=== PATIENT | female | born 1965 | race Two or more races ===

== ENCOUNTER 2024-12-21 15:40 | Emergency (ER) | payer MEDICAID, OTHER, SELFPAY ==
[2024-12-21 15:49] VITALS: BP 184/82; PULSE 73; RESP 19; TEMP 36.6; O2SAT 98; BMI 39.7
--- NOTE | 2024-12-21 15:51 | ED.GENADULT ---
HPI - General Adult General Chief complaint: General Medical Stated complaint: med refill Time Seen by Provider: 12/21/24 15:56 Source: patient Mode of arrival: ambulatory Limitations: language barrier (Chilean-speaking adjunct professor of voice utilized) History of Present Illness ED Provider: haider guardado np HPI narrative: Patient is a 59-year-old female who presents emergency department with family for evaluation. She is in the process of changing insurances, her old primary care provider will not see her with this new insurance, and does not have an appointment with a new primary care provider until May 2025. She states that she ran out of her blood pressure medication this morning; losartan 50 mg daily, hydrochlorothiazide 25 mg daily, simvastatin 40 mg daily, metformin ER 500 mg twice daily that she ran out of 1 week ago. She offers no physical complaints at this time. Related Data Previous Rx's ?Medication ?Instructions ?Recorded hydrochlorothiazide 25 mg tablet 25 mg PO DAILY #90 tabs 12/21/24 losartan 50 mg tablet 50 mg PO DAILY #90 tabs 12/21/24 metformin 500 mg tablet,extended 500 mg PO BID #180 tabs 12/21/24 release 24 hr (Glucophage XR) simvastatin 40 mg tablet 40 mg PO DAILY #90 tabs 12/21/24 Allergies Allergy/AdvReac Type Severity Reaction Status Date / Time No Known Allergies Allergy Verified 12/21/24 15:55 Review of Systems Review of Systems: Yes all other systems are reviewed and are negative [facility] Past Medical History Attestation statement: The following information was validated with the patient. Source: old records reviewed Physical Exam ED Exam Exam: Appearance: Alert.?Oriented to person, place and time. No acute distress.?Normal affect. Neck: Normal inspection.? Neck supple.?? CVS: Heart sounds normal. Normal heart rate and rhythm.? Pulses normal.?? Respiratory: No respiratory distress.? Lung sounds clear to auscultation bilaterally?? Skin: Skin warm and dry.? Normal skin color.? Extremities: No lower extremity edema.? No calf ttp? Neuro: Moves all extremities spontaneously. Sensation intact bilaterally. No focal neuro deficits. Ambulates with normal steady gait. Medical Decision Making Medical Decision Making MDM Narrative: Patient is a 51-year-old female past medical history of hypertension hyperlipidemia, diabetes who presents emergency department requesting assistance with medication refill as per HPI. Offers no physical complaints and her physical examination is benign. I have agreed to send prescription refill to her pharmacy, patient and daughter are enquiring about potential [id number] cost, did make them aware that I am not able to provide this exact information but did discuss utilization of GoodRx as well. All questions answered. Stable for discharge Differential Diagnosis Differential Diagnoses: The differential diagnosis associated with the presentation includes (Hypertension, hyperlipidemia, diabetes, medication refill) Independent Historian Clinical information obtained from an independent historian. History obtained from or confirmed by: Other (Daughter) Chronic Conditions Patient?s care impacted by: Other (See narrative above) Discharge Plan Discharge Clinical Impression: Hypertension, Hyperlipidemia, Type 2 diabetes mellitus Patient Disposition: Home, Self-Care Prescriptions: New losartan 50 mg tablet 50 mg PO DAILY Qty: 90 0RF simvastatin 40 mg tablet 40 mg PO DAILY Qty: 90 0RF hydrochlorothiazide 25 mg tablet 25 mg PO DAILY Qty: 90 0RF metformin [Glucophage XR] 500 mg tablet extended release 24 hr 500 mg PO BID Qty: 180 0RF Referrals: Physician,None [Primary Care Provider, Medical] Discharge Date/Time: 12/21/24 16:17 Print Language: Chilean
[2024-12-21 16:17] VITALS: BP 184/82; PULSE 73; RESP 19; TEMP 36.6; O2SAT 98
--- OUTSIDE RECORDS SUMMARY | 2024-12-21 16:22 | XMS_ITS | Clinical Summary ---
Author Organization [facility] Address [address] [place] [address] Care Team Providers Care Finance Assistant Name Role Phone Julianna Méndez NP Primary Care Provider [phone] Allergies No known active allergies Medications Empagliflozin (JARDIANCE) 10 MG tablet Take 10 mg by mouth 1 (one) time each day in the morning. Active Simvastatin (ZOCOR) 40 MG tabletIndications :Dyslipidemia Take one tablet (40 mg total) by mouth every night at bedtime. 90 tablet 1 09/18/2024 Active Losartan Potassium (COZAAR) 50 MG tabletIndications :Primary hypertension Take one tablet (50 mg total) by mouth 1 (one) time each day. 90 tablet 1 09/18/2024 Active hydroCHLOROthiazi de (HYDRODIURIL) 25 MG tabletIndications :Primary hypertension Take one tablet (25 mg total) by mouth 1 (one) time each day. 90 tablet 1 09/22/2024 05/19/20 25 Active metFORMIN ER (GLUCOPHAGE-XR) 500 MG 24 hr tabletIndications :Type 2 diabetes mellitus without complication, without long-term current use of insulin (HCC) Take one tablet (500 mg total) by mouth 2 (two) times a day with meals. 180 tablet 1 09/22/2024 Active Active Problems Problem Noted Date Diagnosed Date Primary osteoarthritis of both knees 09/22/2024 Acute pain of left shoulder 09/22/2024 Dyslipidemia 09/17/2024 Assessment & Plan (09/17/2024 12:54 PM EDT): Tolerating 20 mg rosuvastatin without unwanted side effects. Orders: ASPARTATE AMINOTRANSFERASE (AST), SERUM; Future ALANINE AMINOTRANSFERASE (ALT), SERUM; Future LIPID PANEL WITH REFLEX TO DIRECT LDL; Future BASIC METABOLIC PANEL WITH (GFR); Future THYROID STIMULATING HORMONE (TSH) WITH FREE T4 REFLEX, SERUM; Future Primary hypertension 09/17/2024 Assessment & Plan (09/17/2024 12:54 PM EDT): Currently on 20 mg losartan. Check BMP and routine labs. Consider dose adjustment and/or addition of HCTZ. Orders: CBC INCLUDES DIFFERENTIAL AND PLATELET COUNT; Future BASIC METABOLIC PANEL WITH (GFR); Future REQUEST FOR DME BP MONITOR THYROID STIMULATING HORMONE (TSH) WITH FREE T4 REFLEX, SERUM; Future Type 2 diabetes mellitus wit hout complication, without long-term current use of insulin 09/17/2024 Assessment & Plan (09/17/2024 12:54 PM EDT): Currently only on 10 mg Jardiance. A1c ordered today. Titrate medication as indicated Orders: CBC INCLUDES DIFFERENTIAL AND PLATELET COUNT; Future HEMOGLOBIN A1C; Future BASIC METABOLIC PANEL WITH (GFR); Future THYROID STIMULATING HORMONE (TSH) WITH FREE T4 REFLEX, SERUM; Future Encounters Date Type Department Care Team Description 10/01/2024 8:40 AM EDT Consult (Initial) [facility] Orth[facility] Surgery [address] [place] [address] [place] [id number] Morales Nickerson PA Primary osteoarthritis of both knees (Primary Dx) 09/22/2024 Telephone [facility] [address] [place] [id number] Julianna Méndez NP Results from Last 3 Months Immunizations Immunization Administration Dates Next Due Measles/Rubella 03/07/2004 Social History Tobacco Use Types Packs/Day Years Used Date Smoking Tobacco: Never Assessed Comments No Sex and Gender Information Value Date Recorded Sex Assigned at Female 08/13/2024 4:36 PM EDT Legal Sex Female 4:31 PM EDT Gender Identity Female 08/13/2024 4:36 PM EDT Sexual Orientation Not on file Last Filed Vital Signs Vital Sign Reading Time Taken Comments Blood Pressure 156/86 09/17/2024 8:49 AM EDT Pulse 71 09/17/2024 8:16 AM EDT Temperature - - Respiratory Rate - - Oxygen Saturation - - Inhaled Oxygen Concentration - - Weight 93 kg (205 lb) 09/17/2024 8:16 AM EDT Height 157.5 cm (5' 2 ) 09/17/2024 8:16 AM EDT Body Mass Index 37.49 09/17/2024 8:16 AM EDT Plan of Treatment Upcoming Encounters Date Type Department Care Team (Late st Contact Info) Description 02/04/2025 2:30 PM EDT Office Visit [facility]. Optometry [address] [place] [id number] Erlinda Decker, OD [address] [place] [address] new diabetic pt, nocl, aodv, elig 09/23/2024 1x24, $0 copay, Os, aoir Health Maintenance Due Date Last Done Comments Pap Smear 1982 DTaP/Tdap/Td (1 - Tdap) 1984 Eye/Retina Exam 1984 Microalbumin 1984 Hep B (1 of 3 - 19+ 3-dose series) 1985 Pneumococcal 50+ years (1 of 2 - PCV) 1985 Mammogram/Breast Imaging 2006 Colon Cancer Screening 2011 Zoster (Shingrix) (1 of 2) 2016 COVID-19 Vaccine ( - 2023-2 5 season) 2024 Influenza (#1) 2025 HA1C 03/19/2025 09/17/2024 GFR 09/17/2025 09/17/2024 LDL Cholesterol 09/17/2025 09/17/2024 Hepatitis C Screening Completed 09/17/2024 HPV Vaccine Aged Out No longer eligi ble based on patient's age to complete this topic Hep A Aged Out No longer eligi ble based on patient's age to complete this topic Hib Aged Out No longer eligi ble based on patient's age to complete this topic Meningococcal ACWY Aged Out No longer eligible based on patient's age to complete this topic Goals Goal Patient Goal Type Associated Problems Recent Progress Patient-Stated? Author Blood Pressure < 140/90 Blood Pressure 156/86(09/17 8:49 AM EDT) Julianna He NP Note: Above is your goal for blood pressure control. You may be able to prevent, reduce or eliminate the medication required for your blood pressure by regular measurement of your blood pressure at home, since home readings are often more reliable than measurements at the doctor s office. You can also improve your blood pressure by getting regular exercise, keeping a normal weight, reducing your sodium/salt intake to 2000 mg/day, reducing caffeine and by limiting your alcohol intake. Men should limit consumption to no more than 2 drinks per day (beer, wine, or mixed drinks) and women should limit to one drink per day. Follow the DASH diet, a diet low in fat, cholesterol, red meat, and sweets. It emphasizes fruits, vegetables, and low-fat dairy foods. The DASH diet also includes whole-grain products, fish, poultry, and nuts. HEMOGLOBIN A1C % < 7 Result Component 7.1(09/18/19 9:00 AM EDT) Julianna He NP Note: Above is your goal for sugar control. Your risk for future diabetic complications such as blindness and amputation can be reduced by following your diabetic diet plan, and paying careful attention to self-monitoring your blood sugar and blood pressure at home. Please plan to check your blood sugar and blood pressure at the frequency suggested, and bring these numbers with you to your next scheduled visit. If you have difficulty reaching the goals which you have set for your diabetes your PCP can refer to one of our diabetes self-management support programs. A fasting blood sugar below 120 is ideal. Procedures * Due to [place] state law, this organization might not be sharing negative HIV tests. Procedure Name Priority Date/Time Associated Diagnosis Comments BASIC METABOLIC PANEL WITH (GFR) Routine 09/17/2024 9:00 AM EDT Primary hypertension Dyslipidemia Type 2 diabetes mellitus without complication, without long-term current use of insulin (HCC) HEPATITIS C AB WITH REFLEX TO RNA PCR, SERUM Routine 09/17/2024 9:00 AM EDT Encounter for hepatitis C screening test for low risk patient HEMOGLOBIN A1C Routine 09/17/2024 9:00 AM EDT Type 2 diabetes mellitus without complication, without long-term current use of insulin (HCC) LIPID PANEL WITH REFLEX TO DIRECT LDL Routine 09/17/2024 9:00 AM EDT Dyslipidemia from Last 3 Months or Most Recently Relevant to Health Maintenance Results * Due to [place] state law, this organization might not be sharing negative HIV tests. * HEPATITIS C AB WITH REFLEX TO RNA PCR, SERUM (09/17/2024 9:00 AM EDT) Hepatitis C virus Ab NON-REACT CHECO NON-REACT CHECO [facility] Comment: HCV antibody was non-reactive. There is no laboratory evidence of HCV infection. In most cases, no further action is required. However, if recent HCV exposure is suspected, a test for HCV RNA (test code 41001) is suggested. For additional information please refer to http://education.[employer]/faq/LMW80m1 (This link is being provided for informational/ educational purposes only.) 09/17/2024 9:00 AM EDT 09/18/2024 12:29 AM EDT Narrative Resulting Agency Comment [id number] us Julianna Méndez CORPORATE SECURITY MANAGER LABORATORY Final Res ult Performing Organization Address City/State/[facility] Co de Phone Number [facility] [address] [place] [address] * (ABNORMAL) HEMOGLOBIN A1C (09/17/2024 9:00 AM EDT) Hemoglobin A1C 7.1(H) <5.7 % [facility] Comment: For someone without known diabetes, a hemoglobin A1c value of 6.5% or greater indicates that they may have diabetes and this should be confirmed with a follow-up test. For someone with known diabetes, a value <7% indicates that their diabetes is well controlled and a value greater than or equal to 7% indicates suboptimal control. A1c targets should be individualized based on duration of diabetes, age, comorbid conditions, and other considerations. Currently, no consensus exists regarding use of hemoglobin A1c for diagnosis of diabetes for children. Estimated Average Glucose 175 mg/dL (calc) [facility] 09/17/2024 9:00 AM EDT 09/18/2024 12:29 AM EDT Narrative Resulting Agency Comment [id number] Julianna Méndez CORPORATE SECURITY MANAGER LABORATORY Final Res ult Performing Organization Address [facility] de Phone Number [facility] [address] [place] [address] * (ABNORMAL) LIPID PANEL WITH REFLEX TO DIRECT LDL (09/17/2024 9:00 AM EDT) Cholesterol 206(H) <200 mg/dL [facility] HDL Cholesterol 60 > OR = 50 mg/dL [facility] Triglyceride 190(H) <150 mg/dL [facility] LDL Cholesterol 115(H) mg/dL (calc) [facility] Comment: Reference range: <100 Desirable range <100 mg/dL for primary prevention; <70 mg/dL for patients with CHD or diabetic patients with > or = 2 CHD risk factors. LDL-C is now calculated using the Tad-Arambula calculation, which is a validated novel method providing better accuracy than the Friedewald equation in the estimation of LDL-C. Tad SS et al. NGOZI. 2013;310(19): 1588-5028 (http://education.[employer]/faq/PJW186) CHOL/HDL Ratio 3.4 <5.0 (calc) [facility] Cholesterol Non-HDL 146(H) <130 mg/dL (calc) [facility] Comment: For patients with diabetes plus 1 major ASCVD risk factor, treating to a non-HDL-C goal of <100 mg/dL (LDL-C of <70 mg/dL) is considered a therapeutic option. 09/17/2024 9:00 AM EDT 09/18/2024 12:29 AM EDT Narrative Resulting Agency Comment [id number] us Julianna Méndez CORPORATE SECURITY MANAGER LABORATORY Final Res ult Performing Organization Address [facility] Co de Phone Number [facility] [address] [place] [address] * (ABNORMAL) BASIC METABOLIC PANEL WITH (GFR) (09/17/2024 9:00 AM EDT) Glucose 135(H) 65 - 99 mg/dL [facility] Comment: Fasting reference interval For someone without known diabetes, a glucose value >125 mg/dL indicates that they may have diabetes and this should be confirmed with a follow-up test. Urea Nitrogen Blood (BUN) 17 7 - 25 mg/dL [facility] Creatinine 0.80 0.50 - 1.03 mg/dL [facility] EGFR 85 > OR = 60 mL/min/1. 73m2 [facility] BUN/Creatinine Ratio SEE NOTE: 6 - (calc) [facility] Comment: Not Reported: BUN and Creatinine are within reference range. Sodium 139 135 - 146 mmol/L [facility] Potassium 4.2 3.5 - 5.3 mmol/L [facility] Chloride 103 98 - 110 mmol/L [facility] Carbon dioxide 26 20 - 32 mmol/L [facility] Calcium 9.7 8.6 - 10.4 mg/dL [facility] 09/17/2024 9:00 AM EDT 09/18/2024 12:29 AM EDT Narrative [facility] - 09/18/2024 6:53 AM EDT Please note that this estimated GFR does not include an adjustment for the patient's height or weight, and can therefore, be viewed as reliable only for patients with heights between 60 and 72 . More precise quantification using a 24-hour urine sample or height-based algorithm is recommended for patients outside of this range of height and for those individuals with more precise needs for GFR calculation. Resulting Agency Comment [id number] us Julianna Méndez CORPORATE SECURITY MANAGER LABORATORY Final Res ult [facility] [address] [place] [address] from Last 3 Months or Most Recently Relevant to Health Maintenance Insurance [employer]BS CAP PPO Care Teams Finance Assistant Relationship Specialty Start Date End Date Julianna Méndez NP [address] [place] [address] PCP - General Family Medicine 08/13/24
== END 2024-12-21 16:17 | disposition home or self-care (01) ==
PROVIDERS: Emergency Provider Emergency Medicine
DX: Z76.0 Encounter for issue of repeat prescription (principal); E11.9 Type 2 diabetes mellitus without complications; I10 Essential (primary) hypertension; E78.5 Hyperlipidemia, unspecified
CPT/HCPCS: 99282; 99283

== ENCOUNTER 2025-03-17 09:58 | Emergency (ER) | payer MEDICAID, OTHER, SELFPAY ==
[2025-03-17 10:25] VITALS: BP 167/73; PULSE 79; RESP 18; TEMP 36.2; O2SAT 96; BMI 35.9
--- NOTE | 2025-03-17 10:29 | ED.GENADULT ---
HPI - General Adult General Chief complaint: General Medical Stated complaint: med refill Time Seen by Provider: 03/17/25 10:33 Source: patient, family (Daughter) and per diem interpreter (Canadian) Mode of arrival: ambulatory Limitations: language barrier (Canadian) History of Present Illness ED Provider: SUZANNE THOMAS PA-C HPI narrative: 59-year-old female with pmhx significant for hypertension presents to the ED today requesting a refill of her medication. Patient states she is prescribed losartan 50 milligrams daily for hypertension. This was last prescribed to her from the emergency department as she was not established with a primary care provider. She reports running out of this medication yesterday. She states that she just got approved for [employer] and is in the process of trying to establish care with a primary care provider. No complaints at this time. Related Data Previous Rx's ?Medication ?Instructions ?Recorded hydrochlorothiazide 25 mg tablet 25 mg PO DAILY #90 tabs 12/21/24 losartan 50 mg tablet 50 mg PO DAILY #90 tabs 12/21/24 metformin 500 mg tablet,extended 500 mg PO BID #180 tabs 12/21/24 release 24 hr (Glucophage XR) simvastatin 40 mg tablet 40 mg PO DAILY #90 tabs 12/21/24 losartan 50 mg tablet 50 mg PO DAILY 1 month #30 tabs 03/17/25 Allergies Allergy/AdvReac Type Severity Reaction Status Date / Time No Known Allergies Allergy Verified 03/17/25 10:31 Review of Systems Review of Systems: Yes all other systems are reviewed and are negative PMFSH Past Medical History Attestation statement: The following information was validated with the patient. Source: old records reviewed and nursing notes reviewed Social History Social History Advance Directives: No Advance Directives Information Provided: No Do you have a plan to hurt others: No Plan Physical Exam ED Vital Signs: Vital Signs - 24 hr 03/17/25 10:25 03/17/25 10:49 Temperature 97.2 F 97.2 F Pulse Rate 79 79 Respiratory Rate 18 18 Blood Pressure 167/73 H 167/73 H Pulse Oximetry 96 96 Oxygen Delivery Method Room Air Room Air BMI result Body Mass Index 35.9 Hypertensive, vitals otherwise WNL General: Well appearing, in no acute distress. Skin: Warm, dry, intact. No rashes or lesions. Head: Normocephalic, atraumatic. EENT: Hearing is intact b/l. Cardiac: Chest wall symmetric Lungs: Normal respiratory effort without accessory muscle use Ext: Upper and lower extremities atraumatic, without deformity, swelling or erythema Neuro: AOx3. Normal speech. Ambulating with steady gait. Psych: Appropriate mood and affect. Responds appropriately to questions. Medical Decision Making Medical Decision Making MDM Narrative: 59-year-old female with pmhx significant for hypertension presents to the ED today requesting a refill of her medication. Hypertensive to 167/73. Vitals otherwise WNL. She is well-appearing and in no acute distress. Differential diagnosis includes essential hypertension, hypertensive urgency versus emergency, med noncompliance, medication refill Plan for med refill and disposition. Labs/other workup not warranted at this time as patient has no concerns. List of PCPs provided to patient, advised to call for follow up. Differential Diagnosis Differential Diagnoses: The differential diagnosis associated with the presentation includes As above Admission/Observation Not indicated Independent Historian Clinical information obtained from an independent historian. History obtained from or confirmed by: Other (Daughter) External Record Review External record reviewed: Inpatient record Prescription Management I considered prescription management with: Other (Losartan) Chronic Conditions Patient?s care impacted by: Hypertension Social Determinants Patient?s care significantly limited by Social Determinants of Health including: Other Social Determinant of Health Critical Care Time Critical Care Time Critical Care Time: No Discharge Plan Discharge Clinical Impression: Medication refill Patient Disposition: Home, Self-Care Instructions: Medicine Refill (ED) Additional Instructions: You were seen in the ED today for a medication refill. Losartan 50mg has been sent to your pharmacy. Take this once daily. You need to follow up with a primary care provider for further prescriptions. This may need to be adjusted. I have provided you with a referral. Call them to establish care, they will not call you. Return with any new or worsening symptoms. In the case of an emergency call 911. Prescriptions: New losartan 50 mg tablet 50 mg PO DAILY 30 Days Qty: 30 2RF No Action losartan 50 mg tablet 50 mg PO DAILY Qty: 90 0RF simvastatin 40 mg tablet 40 mg PO DAILY Qty: 90 0RF hydrochlorothiazide 25 mg tablet 25 mg PO DAILY Qty: 90 0RF metformin [Glucophage XR] 500 mg tablet extended release 24 hr 500 mg PO BID Qty: 180 0RF [place] [facility] [place], Family Practice[place] [facility] [place] [Provider Group, Internal Medicine] Physician,Unknown J [Physician, Medical] Interventions: ED Discharge Assessment Last Done: 03/17/25 10:49 Discharge Date/Time: 03/17/25 10:50 Print Language: Canadian
[2025-03-17 10:49] VITALS: BP 167/73; PULSE 79; RESP 18; TEMP 36.2; O2SAT 96
--- OUTSIDE RECORDS SUMMARY | 2025-03-17 13:00 | XMS_ITS | Encounter Summary ---
Author Organization [facility] Address [address] [place] [address] Care Team Providers Care Bindery Machine Operator Name Role Phone Julianna Méndez NP Primary Care Provider [phone] Encounter Details Date Type Department Care Team (Late st Contact Info) Description 09/17/2024 Orders Only [facility] [address] [place] [address] Julianna Méndez NP [address] [place] [address] Social History Tobacco Use Types Packs/Day Years Used Date Smoking Tobacco: Never Assessed Comments No Sex and Gender Information Value Date Recorded Sex Assigned at Female 08/13/2024 4:36 PM EDT Legal Sex Female 4:31 PM EDT Gender Identity Female 08/13/2024 4:36 PM EDT Sexual Orientation Not on file documented as of this encounter Plan of Treatment Not on file documented as of this encounter Goals Goal Patient Goal Type Associated Problems Recent Progress Patient-Stated? Author Blood Pressure < 140/90 Blood Pressure 156/86(09/17 8:49 AM EDT) No Julianna Méndez NP Note: Above is your goal for [...] A1C % < 7 Result Component 7.1(09/18/19 25 9:00 AM EDT) Julianna He NP Note: [...] fasting blood sugar below 120 is ideal. documented as of this encounter Procedures * Due to [place] state law, this organization might not be sharing negative HIV tests. Procedure Name Priority Date/Time Associated Diagnosis Comments HEPATITIS C AB WITH REFLEX TO RNA PCR, SERUM Routine 09/17/2024 9:00 AM EDT Encounter for hepatitis C screening test for low risk patient CBC INCLUDES DIFFERENTIAL AND PLATELET COUNT Routine 09/17/2024 9:00 AM EDT Primary hypertension Type 2 diabetes mellitus without complication, without long-term current use of insulin (HCC) ALANINE AMINOTRANSFERASE (ALT), SERUM Routine 09/17/2024 9:00 AM EDT Dyslipidemia ASPARTATE AMINOTRANSFERASE (AST), SERUM Routine 09/17/2024 9:00 AM EDT Dyslipidemia THYROID STIMULATING HORMONE (TSH) WITH FREE T4 REFLEX, SERUM Routine 09/17/2024 9:00 AM EDT Primary hypertension Dyslipidemia Type 2 diabetes mellitus without complication, without long-term current use of insulin (HCC) Class 2 severe obesity with serious comorbidity and body mass index (BMI) of 37.0 to 37.9 in adult, unspecified obesity type (HCC) HEMOGLOBIN A1C Routine 09/17/2024 9:00 AM EDT Type 2 diabetes mellitus without complication, without long-term current use of insulin (HCC) LIPID PANEL WITH REFLEX TO DIRECT LDL Routine 09/17/2024 9:00 AM EDT Dyslipidemia BASIC METABOLIC PANEL WITH (GFR) Routine 09/17/2024 9:00 AM EDT Primary hypertension Dyslipidemia Type 2 diabetes mellitus without complication, without long-term current use of insulin (HCC) documented in this encounter Results * Due to [place] state law, this organization might not be sharing negative HIV tests. * CBC INCLUDES DIFFERENTIAL AND PLATELET COUNT (09/17/2024 9:00 AM EDT) WBC 7.3 3.8 - 10.8 Thousand/u L [facility] RBC 4.71 3.80 - 5.10 Million/uL [facility] Hemoglobin 13.9 11.7 - 15.5 g/dL [facility] Hematocrit 43.1 35.0 - 45.0 % [facility] MCV 91.5 80.0 - 100.0 fL [facility] MCH 29.5 27.0 - 33.0 pg [facility] MCHC 32.3 32.0 - 36.0 g/dL [facility] Comment: For adults, a slight decrease in the calculated MCHC value (in the range of 30 to 32 g/dL) is most likely not clinically significant; however, it should be interpreted with caution in correlation with other red cell parameters and the patient's clinical condition. RDW 13.5 11.0 - 15.0 % [facility] PLT 209 140 - 400 Thousand/u L [facility] MPV 12.0 7.5 - 12.5 fL [facility] Neutrophils # 4212 1500 - 7800 cells/uL [facility] Lymphocytes # 2482 850 - 3900 cells/uL [facility] Monocytes # 387 200 - 950 cells/uL [facility] Eosinophils # 183 15 - 500 cells/uL [facility] Basophils # 37 0 - 200 cells/uL [facility] Neutrophils % 57.7 % [facility] Lymphocytes % 34.0 % [facility] Monocytes % 5.3 % [facility] Eosinophils % 2.5 % [facility] Basophils % 0.5 % [facility] 09/17/2024 9:00 AM EDT 09/18/2024 12:29 AM EDT Narrative Resulting Agency Comment [id number] Julianna Méndez CHILD CENTER ASSISTANT LAB SAME DAY RESULT Final Result Performing Organization Address [facility] de Phone Number [facility] [address] [place] [address] * (ABNORMAL) HEMOGLOBIN A1C (09/17/2024 9:00 AM [...] 12:29 AM EDT Narrative Resulting Agency Comment [id number] Julianna Méndez CHILD CENTER ASSISTANT LABORATORY Final Res ult Performing Organization Address [facility] Co de Phone Number [facility] [address] [place] [address] * ASPARTATE AMINOTRANSFERASE (AST), SERUM (09/17/2024 9:00 AM EDT) AST (SGOT) 22 10 - 35 U/L [facility] 09/17/2024 9:00 AM EDT 09/18/2024 12:29 AM EDT Narrative Resulting Agency Comment [id number] Julianna Méndez CHILD CENTER ASSISTANT LAB SAME DAY RESULT Final Result Performing Organization Address [facility]/ZIP Co de Phone Number [facility] [address] [place] [address] * ALANINE AMINOTRANSFERASE (ALT), SERUM (09/17/2024 9:00 AM EDT) ALT (SGPT) 23 6 - 29 U/L [facility] 09/17/2024 9:00 AM EDT 09/18/2024 12:29 AM EDT Narrative Resulting Agency Comment [id number] Julianna Méndez CHILD CENTER ASSISTANT LAB SAME DAY RESULT Final Result Performing Organization Address [facility] de Phone Number [facility] [address] [place] [address] * (ABNORMAL) LIPID PANEL WITH REFLEX TO [...] equation in the estimation of LDL-C. Tad COLLADO et al. NGOZI. 2013;310(19): 2535-0339 (http://education.MYTRND.[facility]/faq/LWS811) CHOL/HDL Ratio 3.4 <5.0 (calc) [facility] Cholesterol Non-HDL 146(H) <130 mg/dL (calc) [facility] Comment: For patients with diabetes plus 1 major ASCVD risk factor, treating to a non-HDL-C goal of <100 mg/dL (LDL-C of <70 mg/dL) is considered a therapeutic option. 09/17/2024 9:00 AM EDT 09/18/2024 12:29 AM EDT Narrative Resulting Agency Comment [id number] Julianna Méndez CHILD CENTER ASSISTANT LABORATORY Final Res ult [facility] [address] [place] [address] * (ABNORMAL) BASIC METABOLIC PANEL WITH (GFR) [...] DIAGNOSTICS BUN/Creatinine Ratio SEE NOTE: 6 - 22 (calc) [facility] Comment: Not Reported: BUN [...] needs for GFR calculation. Resulting Agency Comment [id number] Julianna Méndez CHILD CENTER ASSISTANT LABORATORY Final Res ult [facility] [address] [place] [address] * HEPATITIS C AB WITH REFLEX TO RNA PCR, SERUM (09/17/2024 9:00 AM EDT) Hepatitis C virus Ab NON-REACT CHECO NON-REACT CHECO [facility] Comment: HCV antibody was non-reactive. There is no laboratory evidence of HCV infection. In most cases, no further action is required. However, if recent HCV exposure is suspected, a test for HCV RNA (test code 25404) is suggested. For additional information please refer to http://education.MyFit/faq/LZA66v9 (This link is being provided for informational/ educational purposes only.) 09/17/2024 9:00 AM EDT 09/18/2024 12:29 AM EDT Narrative Resulting Agency Comment [id number] Julianna Méndez NP LABORATORY Final Res ult Performing Organization Address [facility]/ZIP Co de Phone Number [facility] [address] [place] [address] * THYROID STIMULATING HORMONE (TSH) WITH FREE T4 REFLEX, SERUM (09/17/2024 9:00 AM EDT) TSH 3.24 0.40 - 4.50 mIU/L [facility] 09/17/2024 9:00 AM EDT 09/18/2024 12:29 AM EDT Narrative Resulting Agency Comment [id number] Julianna Méndez NP LABORATORY Final Res ult Performing Organization Address [facility] Co de Phone Number [facility] [address] [place] [address] documented in this encounter Visit Diagnoses Diagnosis Primary hypertension Unspecified essential hypertension Dyslipidemia Other and unspecified hyperlipidemia Type 2 diabetes mellitus without complication, without long-term current use of insulin (HCC) Class 2 severe obesity with serious comorbidity and body mass index (BMI) of 37.0 to 37.9 in adult, unspecified obesity type Encounter for hepatitis C screening test for low risk patient documented in this encounter Care Teams Bindery Machine Operator Relationship Specialty Start Date End Date Julianna Méndez NP [address] [place] [id number] PCP - General Family Medicine 08/13/24 documented as of this encounter
--- OUTSIDE RECORDS SUMMARY | 2025-03-17 13:00 | XMS_ITS | Clinical Summary ---
Author Organization [facility] Address [address] [place] [address] Care Team Providers Care Deputy Chief Magistrate Name Role Phone Julianna Méndez NP Primary Care Provider [phone] Allergies No known active allergies Medications Empagliflozin [...] (TSH) WITH FREE T4 REFLEX, SERUM; Future Immunizations Immunization Administration Dates Next Due Measles/Rubella [...] 09/17/2024 8:16 AM EDT Plan of Treatment Health Maintenance Due Date Last Done Comments Pap Smear 1982 DTaP/Tdap/Td (1 - Tdap) 1984 Eye/Retina Exam 1984 Microalbumin 1984 Hep B (1 of 3 - 19+ 3-dose series) 1985 Pneumococcal 50+ years (1 of 2 - PCV) 1985 Mammogram/Breast Imaging 2006 Colon Cancer Screening 2011 Zoster (Shingrix) (1 of 2) 2016 COVID-19 Vaccine (1 - 2024-2 6 season) 2025 Influenza (#1) 2025 HA1C 03/19/2025 09/17/2024 GFR 09/17/2025 09/17/2024 LDL Cholesterol 09/17/2025 09/17/2024 Hepatitis C Screening Completed 09/17/2024 HPV Vaccine (No Doses Required) Completed Hep A Aged Out No longer eligi [...] 120 is ideal. Procedures * Due to [place] [employer] law, this organization might not be sharing [...] to Health Maintenance Results * Due to [place] [employer] law, this organization might not be sharing negative HIV tests. * HEPATITIS C AB WITH REFLEX TO RNA PCR, SERUM (09/17/2024 9:00 AM EDT) Hepatitis C virus Ab NON-REACT CHECO NON-REACT CHECO [facility] Comment: HCV antibody was non-reactive. There is no laboratory evidence of HCV infection. In most cases, no further action is required. However, if recent HCV exposure is suspected, a test for HCV RNA (test code 28113) is suggested. For additional information please refer to http://education.mydeco/faq/GKV24g3 (This link is being provided for informational/ educational purposes only.) 09/17/2024 9:00 AM EDT 09/18/2024 12:29 AM EDT Narrative Resulting Agency Comment [id number] Julianna Méndez [facility] Final Res ult Performing Organization Address [facility] de Phone Number [facility] [address] [place] [address] * (ABNORMAL) HEMOGLOBIN A1C (09/17/2024 9:00 AM [...] 12:29 AM EDT Narrative Resulting Agency Comment [id number] Julianna Méndez [employer] [facility] [facility] Final Res ult Performing Organization Address [facility] de Phone Number [facility] [address] [place] [address] * (ABNORMAL) LIPID PANEL WITH REFLEX TO [...] LDL-C. Tad SS et al. NGOZI. 2013;310(19): 0015-4290 (http://education.[employer]/faq/JCB050) CHOL/HDL Ratio 3.4 <5.0 (calc) [facility] Cholesterol Non-HDL 146(H) <130 mg/dL (calc) [facility] Comment: For patients with diabetes plus 1 major ASCVD risk factor, treating to a non-HDL-C goal of <100 mg/dL (LDL-C of <70 mg/dL) is considered a therapeutic option. 09/17/2024 9:00 AM EDT 09/18/2024 12:29 AM EDT Narrative Resulting Agency Comment [id number] Julianna Méndez [employer] [facility] [facility] Final Res ult [facility] [address] [place] [address] * (ABNORMAL) BASIC METABOLIC PANEL WITH (GFR) [...] needs for GFR calculation. Resulting Agency Comment [id number] Julianna Méndez NP LABORATORY Final Res ult [facility] [address] [place] [address] from Last 3 Months or Most Recently Relevant to Health Maintenance Insurance [employer] CAP PPO Care Teams Deputy Chief Magistrate Relationship Specialty Start Date End Date Julianna Méndez NP [address] [place] [id number] PCP - General Family Medicine 08/13/24
== END 2025-03-17 10:50 | disposition home or self-care (01) ==
PROVIDERS: Emergency Provider Emergency Medicine
DX: Z76.0 Encounter for issue of repeat prescription (principal); I10 Essential (primary) hypertension
CPT/HCPCS: 99282; 99283